=== PATIENT | female | born 1975 | race Caucasian/White ===

== ENCOUNTER 2018-02-01 05:44 | Day surgery (SDC) | payer OTHER ==
[2018-02-01] MEDS ORDERED: SOD CHLORIDE 0.9% 1,000 ML IV (06:00)
[2018-02-01] MEDS ORDERED: CEFAZOLIN 2 GM/50 ML (PMX) 50 ML IVPB (06:00)
[2018-02-01] MEDS ORDERED: FENTAnyl 50 MCG/ML VIAL (07:22)
[2018-02-01] MEDS: POLYMYXIN/BACITRACIN 1L IRRIG (07:33)
[2018-02-01] MEDS ORDERED: DIPHENHYDRAMINE 50 MG INJ (08:02)
[2018-02-01] MEDS ORDERED: DEXAMETHASONE 4 MG/ML 1 ML INJ (08:02)
[2018-02-01] MEDS ORDERED: CEFAZOLIN 1 GM INJ (08:20)
[2018-02-01] MEDS ORDERED: PROPOFOL 20 ML (08:20)
[2018-02-01] MEDS ORDERED: LIDOCAINE 100 MG SYRINGE (08:20)
[2018-02-01] MEDS ORDERED: SUCCINYLCHOLINE CHLORIDE 100 MG/5 ML SYG IV (08:20)
[2018-02-01] MEDS ORDERED: ROCURONIUM 50 MG INJ (08:20)
[2018-02-01] MEDS ORDERED: ROPIVACAINE 0.2% 20 ML VIAL (08:21)
[2018-02-01] MEDS ORDERED: SUGAMMADEX SODIUM 200 MG/2 ML VIAL IV (08:21)
[2018-02-01] MEDS ORDERED: ROPIVACAINE 0.5 % 30 ML VIAL (08:21)
[2018-02-01] MEDS: BUPIVACAINE 0.25% (MPF) 30 ML INJ (08:56)
[2018-02-01] MEDS ORDERED: DIPHENHYDRAMINE 50 MG INJ IV (09:00)
[2018-02-01] MEDS ORDERED: MEPERIDINE 25 MG INJ IV (09:00)
[2018-02-01] MEDS ORDERED: HYDROCODONE/APAP (5/325) TAB PO (09:00)
[2018-02-01] MEDS ORDERED: HYDROmorphONE (0.2 MG/ML) 10ML SYG IV ×3 (09:00)
[2018-02-01] MEDS ORDERED: METOCLOPRAMIDE 10 MG INJ IV (09:00)
[2018-02-01] MEDS ORDERED: FENTAnyl 50 MCG/ML VIAL IV ×2 (09:00)
[2018-02-01] MEDS: ONDANSETRON 4 MG INJ IV (09:44)
== END 2018-02-01 10:51 | disposition home or self-care (01) ==
LOC: SDS 05:44
DX: K43.6 Other and unspecified ventral hernia with obstruction, without gangrene (principal)
CPT/HCPCS: 49653